=== PATIENT | male | born 1990 | race Caucasian/White ===

== ENCOUNTER 2016-05-21 08:52 | Day surgery (SDC) | payer OTHER ==
[2016-05-11 15:59] VITALS: BMI 28.5
[2016-05-21] MEDS ORDERED: MIDAZOLAM HCL 2 MG/2 ML SINGLE DOSE VIAL ONE (10:49)
[2016-05-21] MEDS ORDERED: ROPIVACAINE HCL 0.5% 30ML VIAL ONE (10:50)
[2016-05-21] MEDS ORDERED: DEXAMETHASONE SOD PHOSPHATE/PF 10 MG/ML SDV ONE (10:50)
--- NOTE | 2016-05-21 11:25 | HP ---
History & Physical Update - History History: No Change - Physical Physical: No Change - Assessment Assessment: No Change - Plan Plan: No Change
[2016-05-21] MEDS ORDERED: ceFAZolin SODIUM 1 GM VIAL ONE (11:53)
[2016-05-21] MEDS ORDERED: ONDANSETRON 4 MG/2 ML VIAL ONE (11:53)
[2016-05-21] MEDS ORDERED: PROPOFOL 20 ML ONE ×3 (12:02→12:15)
[2016-05-21] MEDS ORDERED: DEXAMETHASONE SOD PHOSPHATE 4 MG/1 ML VIAL ONE (12:04)
[2016-05-21] MEDS ORDERED: oxyCODONE HCL 10 MG SUSTAINED ACTING TABLET PO ONE (13:01)
[2016-05-21] MEDS ORDERED: oxyCODONE HCL 5 MG TABLET PO PRN (13:01)
--- NOTE | 2016-05-21 13:05 | OP ---
Operative Note - Note: Operative Date: 05/21/16 Pre-Operative Diagnosis: Right shoulder SLAP Operation: RSA, SLAP repair Post-Operative Diagnosis: Same as Pre-op Surgeon: Chris Iverson Anesthesia: General Operative Report Dictated: Yes
--- NOTE | 2016-05-21 13:05 | DS ---
Physical Examination Vital Signs: Vital Signs Temperature 98.5 F 05/21/16 09:23 Pulse Rate 57 L 05/21/16 09:23 Respiratory Rate 16 05/21/16 09:23 Blood Pressure 132/79 05/21/16 09:23 O2 Sat by Pulse Oximetry (%) 98 05/21/16 09:23 Discharge Summary Reason For Visit: SLAP LESION RIGHT SHOULDER Condition: Good - Instructions Diet, Activity, Other Instructions: Post Operative Instructions: Shoulder Arthroscopy Dr Chris Iverson 1. Pain following a Shoulder Arthroscopy is variable and can be significant. Some patients will have more pain than others. You have been provided with a prescription for medication that contains a narcotic. You are not allowed to drive while on this medication. You should NOT take Tylenol (Acetaminophen) when taking the pain medication ( it will result in an overdose). Feel free to take medications such as Ibuprofen or Naprosyn in addition to the pain medicine if you do not have any problems with the NSAID class of medications. 2. Apply ice to the shoulder for 15 minutes every hour. You may continue this for as many days as necessary. 3. You may find sleeping on an incline (reclining chair) to be more comfortable for the first few days. 4. You must remain in your sling at all times except when showering. The only exception to this is to allow you to stretch your elbow a few times a day to prevent your hand and forearm from swelling. 5. You are not to use your arm to reach for anything, lift anything or carry anything until instructed otherwise. 6. You may remove the bandages in 48 hours. You may shower at that point. 7. Place band-aids on the sutures after your shower.Do not put any creams or lotions on the incision until after the sutures are removed. 8. Please call the office to schedule a visit to have your sutures removed. 9. If for any reason you believe you may have an infection or are concerned, please feel free to call me. I can be reached through our office number 24 hours a day. 10. Please call our office with any questions; we will review the surgical findings during your post-operative visit. Disposition: HOME - Home Medications Comprehensive Discharge Medication List: Ambulatory Orders Oxycodone HCl/Acetaminophen [Percocet 5-325 mg Tablet] 1 tab PO Q6H PRN
--- NOTE | 2016-05-21 13:10 | SURG ---
Surgery Animal Behaviorist Note Animal Behaviorist: Mitali Noel PA-C Date of Service: 05/21/16 Diagnosis: Right shoulder SLAP Procedure: RSA, SLAP repair I was present for the entirety of the operative procedure. For further detail, please refer to operative report. Visit type - Case Type Case Type: Scheduled Admission - Emergency Emergency Visit: No - New patient This patient is new to me today: Yes Date on this admission: 05/21/16 - Critical Care Critical Care patient: No
[2016-05-21 13:13] VITALS: TEMP 97.8
[2016-05-21] MEDS ORDERED: oxyCODONE HCL 10 MG SUSTAINED ACTING TABLET ONE (13:44)
[2016-05-21 14:41] VITALS: BP 122/70; PULSE 66
--- NOTE | 2016-05-25 13:33 | PATH ---
Surgical Pathology Report Patient Name: JUAN ZENDEJAS [facility]. Rec. #: [id number] /Age/Gender: 1990 (Age: 25) / M Account: [id number] Location: [facility] AMBULATORY Taken: 05/21/2016 Received: 05/21/2016 Reported: 05/25/2016 Physicians: Chris Iverson M.D. Specimen(s) Received RIGHT SHOULDER SHAVINGS Clinical History Slap lesion right shoulder Final Diagnosis RIGHT SHOULDER, ARTHROSCOPIC SHAVING: PORTIONS OF SYNOVIUM, CARTILAGE, AND BONE CONSISTENT WITH ARTHROSCOPIC SHAVINGS. Electronically Signed Subhash Pedraza M.D. Gross Description Received in formalin, labeled "right shoulder shavings," is a 2.0 x 1.4 x 0.2 cm aggregate of rouse soft tissue fragments. The formalin is filtered and the specimen is entirely submitted in one cassette. /05/24/201605/24/2016
== END 2016-05-21 14:43 | disposition home or self-care (01) ==
LOC: FASU 08:52
PROVIDERS: ATTEND Orthopaedic Surgery
PROC: 0MM14ZZ Reattachment of Right Shoulder Bursa and Ligament, Percutaneous Endoscopic Approach (ICD-10-PCS; principal; 2016-05-21 10:30)
DX: S43.431A Superior glenoid labrum lesion of right shoulder, initial encounter (principal); X58.XXXA Exposure to other specified factors, initial encounter; Y93.9 Activity, unspecified; Y92.9 Unspecified place or not applicable
CPT/HCPCS: 88304-TC